=== PATIENT | female | born 1995 | race Caucasian/White ===

== ENCOUNTER 2018-07-01 04:42 | Emergency (ER) | payer BC ==
[~2018-07-01] VITALS: Ht 162.6 cm; Wt 87.8 kg
[2018-07-01 04:48] VITALS: TEMP 36.5; Ht 162.6 cm; Wt 87.8 kg
[2018-07-01] MEDS ORDERED: SODIUM CHLORIDE 0.9% 1000ML 1,000 ML IV STA (05:01)
[2018-07-01] MEDS ORDERED: ONDANSETRON INJ 2 MG/ML 2 ML VIAL IV STA (05:01)
--- NOTE | 2018-07-01 05:04 | EMERGENCY ROOM VISIT NOTE ---
History Report prepared by Abisai: Cheikh Serrano Under the Supervision of: Dr. Brayan Beltran M.D. First contact with patient: 04:51 Chief Complaint: VOMITING Stated Complaint: ALCOHOL History of Present Illness The patient is a 23 year old female who presents to the Emergency Room with complaints of persistent vomiting beginning 5 hours ago. The patient states she went out and had five alcohol drinks over the course of 2.5 hours. She reports since she returned home, she could not stop vomiting and shaking. She states she cannot eat or drink without vomiting. The patient notes she also has abdominal pain. She states her menstrual period should be starting this Wednesday. The patient reports she was evaluated by a GI doctor and was told she may have GERD. She denies a history of abdominal surgery, chance of , chance of retaining a tampon, blood in vomit, and smoking marijuana. Source of History: patient Onset: five hours ago Quality: other (vomiting) Timing: other (persistent) Modifying Factors (Worsening): eating, drinking Note: Associated symptoms: shaking Denies: a history of abdominal surgery, chance of , chance of retaining a tampon, blood in vomit, and smoking marijuana. Review of Systems See HPI for pertinent positives & negatives. A total of 10 systems reviewed and were otherwise negative. Past Medical & Surgical Medical Problems: (1) GERD (gastroesophageal reflux disease) Family History Patient reports no known family medical history. Social History Smoking Status: Never Smoker Alcohol Use: occasionally Marital Status: single Housing Status: lives with friends Occupation Status: [employer] student Current/Historical Medications Scheduled Ondasetron Odt (Zofran Odt), 4 MG SL Q6H Pantoprazole (Protonix), 40 MG PO DAILY Physical Exam Vital Signs Date Time Temp Pulse Resp B/P (MAP) Pulse Ox O2 Delivery O2 Flow Rate FiO2 07/01/18 06:18 99 16 125/82 99 Room Air 07/01/18 04:48 36.5 88 20 126/74 99 Room Air Physical Exam GENERAL: Awake, alert, well-appearing, in no acute distress HENT: Normocephalic, atraumatic. Oropharynx unremarkable. EYES: Normal conjunctiva. Sclera non-icteric. NECK: Supple. No nuchal rigidity. FROM. No JVD. RESPIRATORY: Clear to auscultation. CARDIAC: Regular rate, normal rhythm. Extremities warm and well perfused. Pulses equal. ABDOMEN: Soft, non-distended. Mild tenderness to palpation of the LUQ. No rebound or guarding. No masses. RECTAL: Deferred. MUSCULOSKELETAL: Chest examination reveals no tenderness. The back is symmetrical on inspection without obvious abnormality. There is no CVA tenderness to palpation. No joint edema. LOWER EXTREMITIES: Calves are equal size bilaterally and non-tender. No edema. No discoloration. NEURO: Normal sensorium. No sensory or motor deficits noted. SKIN: No rash or jaundice noted. Medical Decision & Procedures ER Provider Diagnostic Interpretation: X-ray results as stated below per interpretation by me: One view of chest: No pneumonia, pneumothorax, or congestion. Three view of abdomen: No fractures, SBO, or free air. Laboratory Results 07/01/18 05:29 Red Blood Count 4.38, Mean Corpuscular Volume 86.1, Mean Corpuscular Hemoglobin 29.2, Mean Corpuscular Hemoglobin Concent 34.0, Mean Platelet Volume 11.6, Neutrophils (%) (Auto) 73.4, Lymphocytes (%) (Auto) 21.2, Monocytes (%) (Auto) 4.7, Eosinophils (%) (Auto) 0.3, Basophils (%) (Auto) 0.1, Neutrophils # (Auto) 5.57, Lymphocytes # (Auto) 1.61, Monocytes # (Auto) 0.36, Eosinophils # (Auto) 0.02, Basophils # (Auto) 0.01 07/01/18 05:29 Test 07/01/18 05:29 07/01/18 05:50 White Blood Count 7.59 K/uL (4.8-10.8) Red Blood Count 4.38 M/uL (4.2-5.4) Hemoglobin 12.8 g/dL (12.0-16.0) Hematocrit 37.7 % (37-47) Mean Corpuscular Volume 86.1 fL (80-100) Mean Corpuscular Hemoglobin 29.2 pg (25-34) Mean Corpuscular Hemoglobin Concent 34.0 g/dl (32-36) Platelet Count 261 K/uL (130-400) Mean Platelet Volume 11.6 fL (7.4-10.4) Neutrophils (%) (Auto) 73.4 % Lymphocytes (%) (Auto) 21.2 % Monocytes (%) (Auto) 4.7 % Eosinophils (%) (Auto) 0.3 % Basophils (%) (Auto) 0.1 % Neutrophils # (Auto) 5.57 K/uL (1.4-6.5) Lymphocytes # (Auto) 1.61 K/uL (1.2-3.4) Monocytes # (Auto) 0.36 K/uL (0.11-0.59) Eosinophils # (Auto) 0.02 K/uL (0-0.5) Basophils # (Auto) 0.01 K/uL (0-0.2) RDW Standard Deviation 40.5 fL (36.4-46.3) RDW Coefficient of Variation 12.9 % (11.5-14.5) Immature Granulocyte % (Auto) 0.3 % Immature Granulocyte # (Auto) 0.02 K/uL (0.00-0.02) Anion Gap 10.0 mmol/L (3-11) Est Creatinine Clear Calc Drug Dose 126.2 ml/min Estimated GFR () 131.1 Estimated GFR (Non- 113.1 BUN/Creatinine Ratio 11.2 (10-20) Calcium Level 8.9 mg/dl (8.5-10.1) Total Bilirubin 0.4 mg/dl (0.2-1) Direct Bilirubin 0.1 mg/dl (0-0.2) Aspartate Amino Transf (AST/SGOT) 14 U/L (15-37) Alanine Aminotransferase (ALT/SGPT) 26 U/L (12-78) Alkaline Phosphatase 45 U/L (45-117) Total Protein 8.1 gm/dl (6.4-8.2) Albumin 3.7 gm/dl (3.4-5.0) Lipase 149 U/L (73-393) Urine Color YELLOW Urine Appearance CLEAR (CLEAR) Urine pH 8.5 (4.5-7.5) Urine Specific [place] 1.008 (1.000-1.030) Urine Protein NEG (NEG) Urine Glucose (UA) NEG (NEG) Urine Ketones NEG (NEG) Urine Occult Blood NEG (NEG) Urine Nitrite NEG (NEG) Urine Bilirubin NEG (NEG) Urine Urobilinogen NEG (NEG) Urine Leukocyte Esterase SMALL (NEG) Urine WBC (Auto) 1-5 /hpf (0-5) Urine RBC (Auto) 0-4 /hpf (0-4) Urine Hyaline Casts (Auto) 0 /lpf (0-5) Urine Epithelial Cells (Auto) 10-20 /lpf (0-5) Urine Bacteria (Auto) NEG (NEG) Urine Test NEG (NEG) Labs reviewed by ED physician. Medications Administered Medications (Trade) Dose Ordered Sig/Terese Route Start Time Stop Time Status Last Admin Dose Admin Sodium Chloride 1,000 ml @ 999 mls/hr Q1H1M STAT IV 07/01/18 05:01 07/01/18 06:01 DC 07/01/18 05:01 999 MLS/HR Ondansetron HCl (Zofran Inj) 4 mg NOW STAT IV 07/01/18 05:01 07/01/18 05:03 DC 07/01/18 05:01 4 MG Famotidine (Pepcid Tab) 20 mg NOW STAT PO 07/01/18 05:42 07/01/18 05:43 DC 07/01/18 05:51 20 MG Sucralfate (Carafate Tab) 1 gm NOW STAT PO 07/01/18 05:42 07/01/18 05:43 DC 07/01/18 05:51 1 GM Al Hydroxide/Mg Hydroxide (Maalox Susp) 30 ml STK-MED ONCE .ROUTE 07/01/18 05:49 07/01/18 05:50 DC 07/01/18 05:50 30 ML Lidocaine HCl (Viscous Lidocaine 2% Soln) 20 ml STK-MED ONCE .ROUTE 07/01/18 05:49 07/01/18 05:50 DC 07/01/18 05:50 20 ML Ondansetron HCl (ZOFRAN ODT 4MG Home Pack) 1 homepack UD ONCE PO 07/01/18 06:30 07/01/18 06:31 DC 07/01/18 06:27 1 HOMEPACK ED Course 0455: Past medical records reviewed. The patient was evaluated in room B06. A complete history and physical examination was performed. 0501: Ordered Zofran 4mg IV, Sodium Chloride 1000 ml @ 999 mls/hr 0542: Ordered Sucralfate 1gm PO, Famotidine 20mg PO 0549: Ordered Lidocaine HCl 20ml .ROUTE, Maalox Susp 30ml .ROUTE 0624: Upon reexamination the patient is resting. I discussed results and treatment plan with the patient. She verbalizes agreement and understanding. The patient is ready for discharge. 0630: Ordered Ondansetron HCl 1 homepack PO Medical Decision Differential diagnosis: Etiologies such as appendicitis, diverticulitis, PUD, biliary pathology, UTI, pancreatitis, obstruction, mesenteric ischemia, aortic pathology, infections, inflammatory bowel disease, renal colic, as well as others were entertained. This is a 23-year-old female who presents to the emergency department vomiting after drinking alcohol earlier this evening. Upon arrival to the emergency department I did discuss the patient's presentation with her mother via speaker phone. Patient arrives during a period of high volume and high acuity. Serial abdominal examinations were performed and the patient and her mother both agreed to x-rays as well as laboratory work. As the patient is nontender on examination we felt that she did not require a CAT scan of the abdomen and pelvis. An IV was established, the patient given normal saline bolus, Zofran. She was also trialed with a GI cocktail Pepcid and Carafate. Repeat examination revealed improvement patient's symptoms. The patient was able to tolerate p.o. Gatorade in the emergency department. Based on this finding I feel the patient is safe enough to be discharged home. I did recommend Protonix as well as a clear liquid diet along with 5 mL's of Maalox before every meal and at bedtime. Patient was also given a prescription for Zofran. Mother was in agreement with treatment plan. Medication Reconcilliation Current Medication List: was personally reviewed by me Blood Pressure Screening Patient's blood pressure: Normal blood pressure Blood pressure disposition: Did not require urgent referral Impression Primary Impression: Acute gastritis Scribe Attestation The scribe's documentation has been prepared under my direction and personally reviewed by me in its entirety. I confirm that the note above accurately reflects all work, treatment, procedures, and medical decision making performed by me. Departure Information Dispostion Home / Self-Care Prescriptions Pantoprazole (Protonix) 40 Mg Tab 40 MG PO DAILY, #30 TAB Prov: Brayan Beltran MD 07/01/18 Ondasetron Odt (ZOFRAN ODT) 4 Mg Tab 4 MG SL Q6H for Nausea, #6 TAB Prov: Brayan Beltran MD 07/01/18 Referrals No Doctor Assigned Forms HOME CARE DOCUMENTATION FORM, IMPORTANT VISIT INFORMATION Patient Instructions Gastritis, Gastritis Tx, My [facility] Additional Instructions Recommend clear liquid diet next 48 hours Take 5ml Maalox before every meal and at bedtime Need follow up with GI if continuing to vomit You have been examined and treated today on an emergency basis only. This is not a substitute for, or an effort to provide, complete comprehensive medical care. It is impossible to recognize and treat all injuries or illnesses in a single emergency department visit. It is therefore important that you follow up closely with [facility]. Call as soon as possible for an appointment. Thank you for your time and consideration. I look forward to speaking with you again soon. Please don't hesitate to call us if you have any questions. Problem Qualifiers Primary Impression: Acute gastritis Gastritis type: unspecified gastritis Gastritis bleeding: without bleeding Qualified Codes: K29.00 - Acute gastritis without bleeding
[2018-07-01 05:42] LABS: BASO % 0.1 %; BASO ABS # 0.01 K/uL (0-0.2); EOS % 0.3 %; EOS ABS # 0.02 K/uL (0-0.5); HEMATOCRIT 37.7 % (37-47); HEMOGLOBIN 12.8 g/dL (12.0-16.0); IG# 0.02 K/uL (0.00-0.02); LYMPH % 21.2 %; LYMPH ABS # 1.61 K/uL (1.2-3.4); MEAN CELL VOLUME 86.1 fL (80-100); MEAN CORPUSCULAR HEMOGLOBIN 29.2 pg (25-34); MEAN PLATELET VOLUME 11.6 fL (7.4-10.4); MONO % 4.7 %; MONO ABS # 0.36 K/uL (0.11-0.59); NEUT % 73.4 %; NEUT ABS # 5.57 K/uL (1.4-6.5); PLATELET COUNT 261 K/uL (130-400); RED CELL DISTRIBUTION WIDTH CV 12.9 % (11.5-14.5); RED CELL DISTRIBUTION WIDTH SD 40.5 fL (36.4-46.3); WHITE BLOOD COUNT 7.59 K/uL (4.8-10.8)
[2018-07-01] MEDS ORDERED: GI COCKTAIL PO STA (05:42)
[2018-07-01] MEDS ORDERED: FAMOTIDINE 20 MG TAB PO STA (05:42)
[2018-07-01] MEDS ORDERED: SUCRALFATE 1 GM TAB PO STA (05:42)
[2018-07-01] MEDS ORDERED: ALUMINUM/MAGNESIUM SUSP 30 ML UDC ONE (05:49)
[2018-07-01] MEDS ORDERED: LIDOCAINE HCL 2% VISC SOLN 20 ML UDC ONE (05:49)
[2018-07-01 06:02] LABS: ALBUMIN 3.7 gm/dl (3.4-5.0); CALCIUM 8.9 mg/dl (8.5-10.1); CREATININE 0.75 mg/dl (0.60-1.20); TOTAL PROTEIN 8.1 gm/dl (6.4-8.2)
[2018-07-01 06:18] VITALS: BP 125/82; PULSE 99; O2SAT 99
[2018-07-01] MEDS ORDERED: ONDA4TAB10 SL (06:24)
[2018-07-01] MEDS ORDERED: PANT40TA PO (06:26)
[2018-07-01] MEDS ORDERED: ONDANSETRON HOME PACK 4MG OD TAB PO ONE (06:30)
--- NOTE | 2018-07-01 07:35 | DIAGNOSTIC IMAGING REPORT ---
PA CHEST WITH ABDOMINAL SERIES CLINICAL HISTORY: Left upper quadrant abdominal pain. FINDINGS: A PA chest radiograph is obtained. No prior studies are available for comparison at the time of dictation. The cardiomediastinal silhouette is unremarkable. The lungs and pleural spaces are clear. No pneumothorax is seen. The bony thorax is grossly intact. Supine and erect abdominal radiographs are obtained. No prior studies are available for comparison at the time of dictation. There is a nonobstructed abdominal bowel gas pattern. No evidence of intraperitoneal free air is seen. There are no abnormal abdominal calcifications. The lumbosacral spine and bony pelvis appear intact. IMPRESSION: 1. No active disease in the chest. 2. Nonobstructed abdominal bowel gas pattern. Electronically signed by: Abdirashid Allison M.D. 07/01/2018 7:33 AM Dictated Date/Time: 07/01/2018 7:32 AM
== END 2018-07-01 06:30 | disposition home or self-care (01) ==
LOC: C.EDB 04:43
DX: K29.00 Acute gastritis without bleeding (principal); K21.9 Gastro-esophageal reflux disease without esophagitis; Z79.899 Other long term (current) drug therapy